=== PATIENT | female | born 1985 | race Caucasian/White ===

== ENCOUNTER 2020-07-27 09:51 | Emergency (ER) | payer MEDICAID ==
[~2020-07-27] VITALS: Ht 175.3 cm; Wt 99.8 kg
[2020-07-27 09:57] VITALS: BP_SYST 126
[2020-07-27 10:31] VITALS: BP_SYST 126
== END 2020-07-27 10:31 | disposition home or self-care (01) ==
LOC: SED 09:51
DX: L25.9 Unspecified contact dermatitis, unspecified cause (principal)
CPT/HCPCS: 99281